=== PATIENT | female | born 1950 | race Caucasian/White ===

== ENCOUNTER → 2017-12-16 | Outpatient (CLI) | payer MEDICARE, OTHER ==
--- NOTE | 2017-12-16 16:17 | PCVCIMAG ---
APPROVED REPORT Study performed: 12/16/2017 14:18:14 Exam: Stress Echocardiogram Indication: Cardiomyopathy Patient Location: Echo lab Stress Nurse: Loli Granado RN Status: routine Ht: 5 ft 3 in HR: 77 bpm BP: 110/70 mmHg Rhythm: NSR Medical History Medical History: Cardiomyopathy Procedure The patient underwent an Exercise Stress Test using the Ted Protocol. Blood pressure, heart rate, and EKG were monitored. An Echocardiogram was performed by health physics technician in four stages in quad fashion. At peak stress, four selected images were obtained and placed side by side with resting images for comparison. Stress Test Details Stress Test: Exercise stress testing was performed using a Ted protocol. HR Resting HR: 77 bpmMax Heart Rate (APMHR): 151 bpm Max HR Achieved: 142 bpmTarget HR (85% APMHR): 128 bpm % of APMHR: 94 HR response to stress: Normal HR response to stress BP Resting BP: 110/70 mmHg Max BP: 146/70 mmHg ECG Resting ECG: Sinus Rhythm Stress ECG: Sinus Rhythm Recovery ECG: Sinus Rhythm Clinical Reason for Termination: Maximal effort Exercise duration: 9 min sec Highest Stage Achieved: Stage 3: 3.4 mph at 14% grade. Exercise capacity: 10.10 METs Overall Exercise Capacity for Age: Good Pre-Stress Echo The resting Echocardiogram showed abnormal left ventricular contractility with an estimated Ejection Fraction of about 45%. Post-Stress Echo The stress Echocardiogram showed normal left ventricular contractility with an estimated Ejection Fraction of about >55%. Normal augmentation of wall motion in all segments on post stress images. Clinical No clinical or ECG evidence for ischemia. Conclusion Clinical Response: Non-ischemic Exercise Capacity: Average Stress ECG Response: Non-ischemic Stress Echo Images: Non-ischemic Other Information Study Quality: Good
== END | disposition home or self-care (01) ==
LOC: PCVCIMAG 15:31
PROVIDERS: ATTEND Internal Medicine Cardiovascular Disease
DX: I42.9 Cardiomyopathy, unspecified (principal); I10 Essential (primary) hypertension
CPT/HCPCS: 93325; 93351

== ENCOUNTER → 2018-09-07 | Outpatient (CLI) | payer MEDICARE, OTHER | END | disposition home or self-care (01) | LOC: PCVCCLINIC 12:20 | PROVIDERS: ATTEND Internal Medicine Cardiovascular Disease | DX: I10 Essential (primary) hypertension (principal); I42.9 Cardiomyopathy, unspecified; R94.31 Abnormal electrocardiogram [ECG] [EKG]; E78.5 Hyperlipidemia, unspecified; M85.80 Other specified disorders of bone density and structure, unspecified site; Z85.3 Personal history of malignant neoplasm of breast; Z79.899 Other long term (current) drug therapy; Z88.8 Allergy status to other drugs, medicaments and biological substances | CPT/HCPCS: 36415; 80061; 93005; G0463 ==

== ENCOUNTER → 2019-02-28 | Outpatient (CLI) | payer MEDICARE, OTHER ==
--- NOTE | 2019-02-28 16:05 | PCVCIMAG ---
APPROVED REPORT Study performed: 02/28/2019 14:11:00 Exam: Stress Echocardiogram Indication: Non-ischemic cardiomyopathy, htn, hlp, hx of chemotherapy Patient Location: Observation Stress Nurse: Bing Delgado RN Status: routine Ht: 5 ft 3 in HR: 88 bpm BP: 110/72 mmHg Rhythm: NSR Procedure The patient underwent an Exercise Stress Test using the Ted Protocol. Blood pressure, heart rate, and EKG were monitored. An Echocardiogram was performed by hemodialysis lab technician in four stages in quad fashion. At peak stress, four selected images were obtained and placed side by side with resting images for comparison. Stress Test Details Stress Test: Exercise stress testing was performed using a Ted protocol. HR Resting HR: 88 bpmMax Heart Rate (APMHR): 150 bpm Max HR Achieved: 141 bpmTarget HR (85% APMHR): 127 bpm % of APMHR: 94 Recovery HR: 93 bpm HR response to stress: Normal HR response to stress BP Resting BP: 110/72 mmHg Max BP: 140/80 mmHg Recovery BP: 118/76 mmHg BP response to stress: Normal blood pressure response to stress. ECG Resting ECG: Sinus Rhythm Stress ECG: Sinus Rhythm ST Change: Normal Arrhythmia: None Recovery ECG: Sinus Rhythm Recovery ST Change: Normal Recovery Arrhythmia: None Clinical Reason for Termination: Maximal effort Stress Symptoms: Dyspnea Exercise duration: 7 min 39 sec Highest Stage Achieved: Stage 3: 3.4 mph at 14% grade. Exercise capacity: 10.1 METs Overall Exercise Capacity for Age: Normal Scale: Active Angina Score: None Pre-Stress Echo The resting Echocardiogram showed mildly decreased left ventricular contractility with an estimated Ejection Fraction of about 40-45%. Normal wall motion in all segments on baseline images. Mildly decreased EF globally from known non-ischemic cardiomyopathy. Post-Stress Echo The stress Echocardiogram showed normal left ventricular contractility with an estimated Ejection Fraction of about 50%. Normal augmentation of wall motion in all segments on post stress images. Clinical No clinical or ECG evidence for ischemia. Conclusion Clinical Response: Non-ischemic Exercise Capacity: Average Stress ECG Response: Non-ischemic Stress Echo Images: Non-ischemic The left ventricle is normal in size and wall thickness in both the rest and stress images. Mild aortic insufficiency without stenosis. Trace mitral and tricuspid regurgiation with PAP of 27 mmHg. Mild pulmonic regurgitation. No valvular stenosis. Other Information Study Quality: Adequate <Conclusion> The left ventricle is normal in size and wall thickness in both the rest and stress images. Mild aortic insufficiency without stenosis. Trace mitral and tricuspid regurgiation with PAP of 27 mmHg. Mild pulmonic regurgitation. No valvular stenosis.
== END | disposition home or self-care (01) ==
LOC: PCVCIMAG 14:08
PROVIDERS: ATTEND Internal Medicine Cardiovascular Disease
DX: I35.1 Nonrheumatic aortic (valve) insufficiency (principal); I10 Essential (primary) hypertension; I42.8 Other cardiomyopathies; E78.5 Hyperlipidemia, unspecified; M85.88 Other specified disorders of bone density and structure, other site
CPT/HCPCS: 93325; 93351